=== PATIENT | male | born 1985 | race Caucasian/White ===

== ENCOUNTER 2023-09-25 09:49 | Outpatient (CLI) | payer OTHER, SELFPAY ==
--- NOTE | 2023-09-25 | ECHO_ITS ---
Patient Info Name: Maicol Freeman Age: 38 years : 1985 Gender: Male Ht: 72 in Wt: 173 lbs BSA: 2.00 m2 HR: 57 bpm BP: 129 / 71 mmHg Heart Rhythm: Sinus Rhythm Technical Quality: Good Exam Date: 09/25/2023 10:02 AM Exam Location: Echo Lab Patient Status: Outpatient Admit Date: 09/25/2023 Staff Ordering Physician: CarmenTess PA-C Towing Pilot: Sofie Ventura RDCS Attending Provider: Tess Israel PA-C Exam Type: CA echo doppler color flow Study Info Indications R06.00 - Dyspnea, unspecified Complete two-dimensional, color flow and Doppler transthoracic echocardiogram is performed. Summary 1. Complete two-dimensional, color flow and Doppler transthoracic echocardiogram is performed. 2. Normal 2D/Doppler echocardiogram. Left Ventricle Left ventricular chamber dimension is normal. Left ventricular systolic function is normal, estimated at 60-65%. The left ventricular diastolic function is normal. Right Ventricle Right ventricular chamber dimension is normal. Left Atria Left atrial chamber dimension is normal. Right Atria Right atrial chamber dimension is normal. Aortic Valve The aortic valve is normal. Pulmonic Valve The pulmonic valve is normal. Mitral Valve The mitral valve has normal leaflets. Tricuspid Valve The tricuspid valve leaflets are normal. Pericardium/Pleural The pericardium appears normal. Aorta The aortic root size at the sinus of Valsalva is normal. Left Ventricular Outflow Tract Name Value Normal LVOT 2D LVOT Diameter 1.9 cm LVOT Doppler LVOT Peak Gradient 5 mmHg LVOT Mean Gradient 3 mmHg LVOT VTI 23 cm LVOT VTI/AV VTI Ratio 1.0 LVOT Stroke Volume 64 ml LVOT CO 3.5 l/min LVOT CI 1.8 l/min/m2 Pulmonic Valve Name Value Normal RVOT Doppler RVOT Peak Gradient 3 mmHg PV Doppler PV Peak Gradient 6 mmHg Mitral Valve Name Value Normal MV Doppler MV Decel [place] 488 cm/s2 MV PHT 66 ms MV Area (PHT) 3.3 cm2 4.0-5.0 MV Diastolic Function MV E Peak Velocity 112 cm/s MV A Peak Velocity 53 cm/s MV E/A 2.1 MV Decel Time 229 ms Tricuspid
--- NOTE | ~2023-09-25 | XR_ITS ---
Clinical Indication: Dyspnea PA and lateral views of the chest: Comparison: None Findings: The lungs are clear, without evidence of focal consolidation or pleural effusion. Cardiome diastinal silhouette is within normal limits. Bones and soft tissues are unremarkable. Impression: Clear lungs. Possible COPD. Reviewed, dictated and finalized at location . Impression: Clear lungs. Possible COPD.
== END 2023-09-25 09:50 | disposition home or self-care (01) ==
LOC: ANHCARD 09:55
PROVIDERS: PCP Physician Assistant; Visit Provider Physician Assistant
DX: R06.00 Dyspnea, unspecified (principal)
CPT/HCPCS: 71046; 93306

== ENCOUNTER 2024-05-22 10:09 | Outpatient (CLI) | payer OTHER, SELFPAY ==
--- NOTE | ~2024-05-22 | CT_ITS ---
EXAMINATION: CT abdomen pelvis wo con DATE: 05/22/2024 10:37 INDICATION: Nephrolithiasis TECHNIQUE: Computed tomography (CT) of the abdomen and pelvis was performed without intravenous contr ast. Automated exposure control and iterative reconstruction technique were employed. The dose-length product was 189.89 mGy-cm. COMPARISON: 04/27/2017 FINDINGS: Bases are clear. Heart size is normal. No pericardial or pleural effusion. Liver, gallbladder, spleen , pancreas and bilateral adrenal glands are normal. Kidneys and ureters are normal with no urolithias is, hydroureteronephrosis or perinephric/ureteral stranding. Bowels are unremarkable no wall thickeni ng or obstruction. Bladder is normal. No free intraperitoneal gas or fluid. No pathologically enlarge d abdominal or pelvic lymphadenopathy. Small fat-containing umbilical hernia. Mild lumbar and lower t horacic spondylosis. Ankylosis across anterior margin of the bilateral sacroiliac joints. IMPRESSION: 1. No urolithiasis or acute intra-abdominal/pelvic process. Reviewed, dictated and finalized at location B. [facility]
--- OUTSIDE RECORDS SUMMARY | 2024-05-22 11:42 | XMS_ITS | Referral Summary ---
Author Organization [facility] Address [address] [place] [address] Care Team Providers Care Miter Saw Operator Name Role Phone Tess Alexis Primary Care Pr ovider Allergies No known active allergies Medications No known medications Active Problems Problem Noted Date Diagnosed Date Hyperhidrosis 04/06/2020 Pain in toe 04/06/2020 Seasonal allergic rhinitis 03/30/2020 Social History Tobacco Use Types Packs/Day Years Used Date Smoking Tobacco: Never Personal Safety Answer Date Recorded Getting School Help Needed Not on file 05/27 Sex and Gender Information Value Date Recorded Sex Assigned at Not on file Legal Sex Male 11:19 AM CDT Gender Identity Male 10/01/2020 12:34 PM CDT Sexual Orientation Straight 10/01/2020 12 :34 PM CDT Last Filed Vital Signs Vital Sign Reading Time Taken Comments Blood Pressure - - Pulse - - Temperature - - Respiratory Rate - - Oxygen Saturation - - Inhaled Oxygen Concentration - - Weight 78 kg (172 lb) 10/01/2020 3:54 PM CDT Height 182.9 cm (6') 10/01/2020 3:54 PM CDT Body Mass Index 23.33 10/01/2020 3:54 PM CDT Plan of Treatment Not on file Insurance [employer] [facility] H[facility]/PPO Address: [address] [address] [place] [address] Care Teams Miter Saw Operator Relationship Specialty Start Date End Date Tess Alexis PA PCP - General Physician Signing Agent 08/04/23
--- OUTSIDE RECORDS SUMMARY | 2024-05-22 11:42 | XMS_ITS | Data Portability ---
Author Organization [facility] Address [address] [place] [address] Care Team Providers Care Environmental Conflict Manager Name Role Phone YANGSHERIDANVERNONIE Primary Care Provider Unavailab le Assessment No assessment recorded. Plan of Treatment Reminders Order Date Submit Date Provider Last Modified By Organization Details Last Modified Time Details Appointments None recorded. Lab TSH + free T4, serum 2023 024 [email or web address], [address], [place], [address], 4 14:27:44 magnesium , serum or plasma 2023 024 [email or web address], [address], [place], [address], 4 14:27:44 CMP, serum or plasma 2023 024 [email or web address], [address], [place], [address], 4 14:27:44 CBC w/ auto diff 2023 0[address] [email or web address] [address], [place], [address], 4 14:27:44 lipid panel, serum 2023 024 [email or web address], [address], [place], [address], 4 14:27:44 vitamin B12 + folate, serum or blood 2023 024 [email or web address], [address], [address], [place], [address], 4 14:27:44 iron + TIBC + ferritin, serum 2023 024 [email or web address], [address], [address], [place], [address], 4 14:27:45 cortisol, am, serum 2023 024 [email or web address], [address], [address], [place], [address], 4 14:27:44 HbA1c (hemoglob in A1c), blood 2023 024 [facility], [address], [address], [place], [address], 4 14:27:44 Referral None recorded. Procedures None recorded. Surgeries None recorded. Imaging CT, abdomen + pelvis, w/ contrast 2023 [facility], [address], [address], [place], [address], 4 11:06:24 US, duplex, scrotum, complete 2023 [facility], [address], [place], [address], 4 16:59:40 holter monitor 2023 024 [facility], [address], [address], [place], [address], 4 14:12:48 US, echocardi ogram, transthor acic, complete, w/ color flow 2023 024 [facility] [address] [place] [address] [place] [address], [phone], 4 16:29:49 XR, chest, 2 view 2023 024 [facility] ([facility]), [address] [place] [address] [place] [address], [id number], 4 14:22:19 Medication Orders None recorded. Patient TargetsNo targets recorded. Patient InstructionsNo instructions recorded. Reason for Referral None Reported. Results Created Date Observation Date Name Description Value Unit Range Abnormal Flag Note LastModifiedBy Organization Detail LastModifiedTime 08/24/19 24 08/24/2023 attila r monit or No observ ation record ed. [email or web address] [facility] [address], [place], [address], 08/25/2023 10:12:52 09/25/19 24 09/25/2023 XR, chest , 2 view No observ ation record ed. [email or web address] [address] [place] [address], [address], 09/26/2023 01:53:30 10/06/19 24 09/25/2023 US, echoc ardio gram, trans thora cic, compl ete, w/ color flow No observ ation record ed. [facility] [address] [place], [place] [address] [address] [place] [address], [phone], 10/08/2023 18:07:30 Result Notes None recorded. Problems Name Problem SNOMED Code Status Onset Date Resolution Date Notes Provider Name and Address Organization Details Recorded Time Cortisol level outside reference range 573875804 Active 024 GEMINI Penn Attn: Cathy g,[address], [place], [address], [facility] 4 20:14:00 Problem Notes None recorded. Procedures Surgical History Date Name Laterality Status Provider Name and Address Organization Details Recorded Time Vasectomy completed Rosanne Urban MA [facility] 08/01/2023 16:56:13 Imaging Results Imaging Date Name Status LastModified by Tony aguilar Details LastModified Time 08/24/2023 holter monitor completed [email or web address] [facility] [address], [place], [address], 08/25/2023 10:12:52 09/25/2023 XR, chest, 2 view completed [address], [place], [address], 09/26/2023 01:53:30 09/25/2023 US, echocardiogr am, transthoraci c, complete, w/ color flow completed [facility] [address] [place] [address] [address], [place], [address], 10/08/2023 18:07:30 Procedure Notes None recorded. Medical Equipment None Reported. Allergies No known drug allergies Medications Not known to be on any medication Vitals Date Recorded Body height Body mass index (BMI) Body weight Respiratory rate Oxygen saturation Oxygen saturation in Arterial blood by Pulse oximetry Heart rate Systolic blood pressure Diastolic blood pressure Provider Name and Address Organization Details Last Updated DateTime 182.88 cm 24 kg/m2 51026.9 3 g 20 /min 99 % 99 % 69 /min 122 mm[Hg] 82 mm[Hg] Rosanne Urban MA [facility] 16:51:58 Date Recorded Systolic blood pressure Diastolic blood pressure Provider Name and Address Organization Details Last Updated DateTime 08/01/2023 120 mm[Hg] 80 mm[Hg] GEMINI Penn Attn: Accounting,[address], [place], [address], [facility] 08/01/2023 17:30:03 Date Recorded Body height Body mass index (BMI) Body weight Respiratory rate Oxygen saturation Oxygen saturation in Arterial blood by Pulse oximetry Heart rate Systolic blood pressure Diastolic blood pressure Provider Name and Address Organization Details Last Updated DateTime 4 182.88 cm 24 kg/m2 90324.4 9 g 20 /min 99 % 99 % 61 /min 118 mm[Hg] 78 mm[Hg] Rosanne Urban MA [facility] 4 09:04:44 Date Recorded Systolic blood pressure Diastolic blood pressure Provider Name and Address Organization Details Last Updated DateTime 09/26/2023 110 mm[Hg] 62 mm[Hg] GEMINI Penn Attn: Accounting,[address] [facility], [place], [address], [facility] 09/26/2023 09:23:32 Date Recorded Body height Body mass index (BMI) Body weight Oxygen saturation Oxygen saturation in Arterial blood by Pulse oximetry Heart rate Systolic blood pressure Diastolic blood pressure Provider Name and Address Organization Details Last Updated DateTime 4 182.88 cm 24 kg/m2 50973.8 5 g 99 % 99 % 62 /min 126 mm[Hg] 82 mm[Hg] Rosanne Urban MA [facility] 12:00:34 Social History Question Answer Notes LastModified by Organizat ion Details LastModified Time Tobacco Smoking Status Never Smoker Rosanne Urban MA null, [facility] 07/31/2023 16:47:05 Do You Have An Advance Directive? No Information not available 07/31/2023 What Is Your Level Of Alcohol Consumption? Occasional Information not available 07/31/2023 Are You Blind Or Do You Have Difficulty Seeing? No Contacts Information not available 07/31/2023 What Is Your Level Of Caffeine Consumption? Moderate Information not available 07/31/2023 In The 14 Days Before Symptom Onset, Have You Had Close Contact With A Laboratory-confir med COVID-19 While That Case Was Ill? No Information not available 07/31/2023 In The 14 Days Before Symptom Onset, Have You Had Close Contact With A Person Who Is Under Investigation For COVID-19 While That Person Was Ill? No Information not available 07/31/2023 Have You Been To An Area Known To Be High Risk For COVID-19? No Information not available 07/31/2023 Are You Deaf Or Do You Have Serious Difficulty Hearing? No Information not available 07/31/2023 What Type Of Diet Are You Following? REGULAR Information not available 07/31/2023 Are There Any Guns Present In Your Home? No Information not available 07/31/2023 What Was The Date Of Your Most Recent Tobacco Screening? 02/14/2024 Information not available 02/14/2024 What Is Your Relationship Status? Information not available 07/31/2023 Do You Use Your Seat Belt Or Car Seat Routinely? Yes Information not available 07/31/2023 Do You Have Smoke And Carbon Monoxide Detectors In Your Home? Yes Information not available 07/31/2023 Do You Use Any Illicit Or Recreational Drugs? No Information not available 07/31/2023 Do You Use Sunscreen Routinely? Yes Information not available 07/31/2023 Has Tobacco Cessation Counseling Been Provided? Yes Information not available 07/31/2023 On What Date Was Tobacco Cessation Counseling Provided? 02/14/2024 Information not available 02/14/2024 Do You Or Have You Ever Used Any Other Forms Of Tobacco Or Nicotine? No Information not available 07/31/2023 Sex: Male Functional Status Question Answer Note LastModified by Organization D etails LastModified Time Are you able to care for yourself? Yes Information not available 07/31/2023 What is your exercise level? Moderate Information not available 07/31/2023 Mental Status None recorded. Family History Relationship Description Onset Age of this Age Resolved Age Notes LastModified by Organization Details LastModified Time Father Hypertensive disorder tcarterma Not available 2023 16:55:09 Father Hypercholest erolemia tcarterma Not available 2023 16:55:16 Brother Hypertensive disorder tcarterma Not available 2023 16:55:09 Brother Hypercholest erolemia tcarterma Not available 2023 16:55:17 Mother Migraine tcarterma Not availabl e 08/01/2023 16:55:21 Medical History Condition Response Coronary Artery Disease N Other N High Blood Pressure N Atrial Fibrillation N Kidney or Bladder Problems N Thyroid Problems N GI Problems N Depression N COPD N Blood Clots N Skin Problems N Anemia N Heart Attack ([place]) N Anxiety Disorder N Diabetes N Muscle, Joint, or Bone Problems N Seizures/Epilepsy N Acid Reflux (GERD) N Cancer N Stroke N Asthma N Allergies Y High Cholesterol N Hepatitis N Liver Disease N Headaches N Heart Failure N Osteoporosis N Immunizations Vaccine Type Date Status Note Provider Nam e and Address Organization Details Recorded Time COVID-19, mRNA, LNP-S, PF, 30 mcg/0.3 mL dose 05/18/2020 completed YENY [place], [place] [facility] 02/14/2024 11:59:16 COVID-19, mRNA, LNP-S, PF, 30 mcg/0.3 mL dose 06/08/2020 [place] YENY [place] [facility] 02/14/2024 11:59:16 COVID-19, mRNA, LNP-S, PF, 30 mcg/0.3 mL dose 03/23/2021 [place] YENY [place] [facility] 02/14/2024 11:59:16 Tdap 03/25/2022 [place] Y[place] [facility] 02/14/2024 11:59:16 Influenza, split virus, quadrivalent, PF 03/23/2021 [place] YEN[place] [facility] 02/14/2024 11:59:16 Influenza, split virus, quadrivalent, PF 03/25/2022 [place] YENY [place] [facility] 02/14/2024 11:59:16 Past Encounters Encounter ID Performer Location Encounter Start Date Encounter Closed Date Diagnosis/Indication Diagnosis SNOMED-CT Code Diagnosis ICD10 Code Diagnosis Note [id number] GEMINI Penn [facility] [place] [address] [place] [address] 08/01/2023 16:34:53 08/25/2023 13:55:47 Intermittent palpitations 890480091 R00.2 check TFTs, magnesium, CMP, CBC and check holter monitor 14 days. Dyspnea 424669392 R06.00 reported episodes of dyspnea feeling. not just with exercise and not just at rest. refer for complete echo doppler and CXR. Diabetes m ellitus screening 967740783 Z13.1 a1c screening ordered. Cholesterol screening 27 8638827 Z13.220 fasting lipids ordered. Hypotensive episode 6776 3001 I95.9 screening cortisol A.M. lab Dizziness 962938712 R42 check vitamin B12, folate, and iron studies. [id number] GEMINI Penn [facility] [employer] [address] [place] [address] 09/26/2023 08:51:14 09/26/2023 10:04:15 Intermittent palpitations 636644067 R00.2 Palpitatio ns have now resolved. Lab work is all stable. Echocardio gram is pending results Dizziness 090578417 R42 Dizziness has resolved Hypotensive episode 6776 3001 I95.9 Hypotensio n feeling has also resolved. Dyspnea 914902954 R06.00 Echocardio gram is pending and dyspnea has resolved. Cortisol l evel outside reference range 771219535 R89.1 Cortisol levels were slightly outside of reference range on the high end. Referral to endocrinol ashlyn was placed. [id number] GEMINI Penn [facility] [employer] [address] [place] [address] 02/14/2024 11:48:04 02/14/2024 13:48:28 Pain in scrotum 89302221 N50.82 Refer for ultrasound duplex of the scrotum Left lower quadrant pain 185115848 R10.[address] scan abdomen and pelvis with contrast for left lower quadrant pain. Rule out hernia Health Concerns Section Related Observation LastModified by Organization Detai ls LastModified Time None Recorded Concern Status LastModified by Organization Details LastModified Time None Recorded Advance Directives Directive N: Payers Encounter Date Sequence Insurance Name Policy Number Policy Carmichael Covered Member ID Carmichael Member ID Guarantor Name 08/01/2023 1 [facility] Maicol Lara [id number] Maicol Lara 09/26/[address] [facility] [employer] [facility] Maicol Lara [id number] Maicol Lara 02/14/2024 1 [facility] Maicol Lara [id number] Maicol Lara Notes Date Note Type Note Provider Name and Address Organization Details Recorded Time 08/01/2023 text/html Pt reports:intermitte nt palpitations on and off for several months. 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 , felt dizzy and tired right away and that was abnormal. Dizzy off and on all day. BP 89/42. Pulse has been in the 50's rarely over 60. the last several weeks, he gets winded when he doesn't expect to; he can breathe fine, just feels like he doesn't get enough air. The palpitations feel fluttery . Pt does take a lot of supplements; methylfolate is new. He does take a mushroom complex also. No syncope. no headaches. no fever or chills. Starting in March or Apr. he had infection that went into sinuses; and just every few weeks it flared up. He reports some Vague chest pains back then but not now. pt also reports epigastric area some pressure, no reported reflux or heartburn. Face seems a little puffy to his and he feels that his arms are more vascular lately. He tracks sleep on his watch; the days when he wakes up dizzy, he had increased deep sleep. GEMINI Penn Attn: Accounting,[address] [place], [address], [place] [facility] 08/21/2023 00:12:29 09/26/2023 text/html Current HPI: Yobani norwood ew times has had heart palpitations since he has been here. Dyspnea seems like it's fine . Holter monitor is normal. ECHO is pending, just completed yesterday. Pt. states that his bp hasn't been as low as when it first occurred, states that the heart palpation aren't as frequent as they were pt. states that he is still having some pain in left arm from when he gotten labs drawn Hx HPI last visit:intermittent palpitations on and off for several months. 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 , felt dizzy and tired right away and that was abnormal. Dizzy off and on all day. BP 89/42. Pulse has been in the 50's rarely over 60. the last several weeks, he gets winded when he doesn't expect to; he can breathe fine, just feels like he doesn't get enough air. The palpitations feel fluttery . Pt does take a lot of supplements; methylfolate is new. He does take a mushroom complex also. No syncope. no headaches. no fever or chills. Starting in March or Apr. he had infection that went into sinuses; and just every few weeks it flared up. He reports some Vague chest pains back then but not now. pt also reports epigastric area some pressure, no reported reflux or heartburn. Face seems a little puffy to his and he feels that his arms are more vascular lately. He tracks sleep on his watch; the days when he wakes up dizzy, he had increased deep sleep. GEMINI Penn Attn: Accounting[address] [place], [address], [facility] 10/01/2023 20:14:18 02/14/2024 text/html problems-MaleRepor elvin bypatient.Location :scrotum Quality:aching Severity:mild Duration:started: (2 weeks) Onset/Timing:mckayla tabor Context:sexually active; 1 partners in last year; heterosexual; vaginal intercourse Modifying Factors:nothing gives relief Associated Symptoms:no penile lesions/sores; no scrotal lesions/sores; no penile discharge; no flank pain; no jaundice; no blood in the urine; no pain during urination; no impotence GEMINI Penn Attn: Accounting[address] [place], [address], [facility] 02/25/2024 13:02:08
--- OUTSIDE RECORDS SUMMARY | 2024-05-22 11:42 | XMS_ITS | Clinical Summary ---
Author Organization [facility] Address [address] [place] [address] Care Team Providers Care Liquified Natural Gas Technician Name Role Phone Tess Alexis Primary Care [...] Orientation Straight 10/01/2020 12 :34 PM CDT Obstetrics History Last Filed Vital Signs Vital Sign Reading [...] of Treatment Not on file Insurance [employer] [facility] HMO/PPO Address: [address] [address] [place] [address] Care Teams Liquified Natural Gas Technician Relationship Specialty Start Date End Date Tess Alexis PA PCP - General Physician Canvass Manager 08/04/23
== END 2024-05-22 10:10 | disposition home or self-care (01) ==
PROVIDERS: PCP Physician Assistant; Visit Provider Urology
DX: Z87.442 Personal history of urinary calculi (principal)
CPT/HCPCS: 74176